=== PATIENT | male | born 1955 | race Two or more races ===

== ENCOUNTER → 2017-08-17 | Emergency (ER) | payer OTHER ==
[~2017-08-17] VITALS: Ht 175.3 cm; Wt 93.4 kg
[~2017-08-17] MED LIST: ACET325T9 PO; AMLO25PO MC; CIPR500T94 PO; GUAI120L35 PO; HYDR-971 PO; HYDR25TA9 PO; METO25TA2 PO; NAPR275T59 PO; OMEG1CAP30 PO; SAW1CAPS3 PO; TAMS0.4C2 PO; TAMS0.4C97 PO
[2017-08-17 08:18] VITALS: BP 148/89
--- NOTE | 2017-08-17 08:39 | PHYS DOC ---
Past History Past Medical History: Hypertension Additional Past Medical Histor: foot drop Past Surgical History: TURP, Other Additional Past Surgical Histo: PFO closure, back surgery, Smoking: Non-smoker Alcohol Use: None Drug Use: None Adult General Chief Complaint Chief Complaint: [facility] HPI Patient is a pleasant 62-year-old otherwise healthy male with a history of PFO closure surgically, hypertension, prior foot drop secondary to back surgery with complains of one-week history of a nonproductive cough. Patient has had runny nose cough congestion for last week with episodes of increasing congestion and increasing sore throat with coughing. He complains of no chest pain, no shortness of breath, no travel outside the country, no fevers, chills, changes in voice, or anterior neck swelling or fullness. He has had sick contacts both at work and at home. He denies any antibiotic use or night sweats or fevers. The cough is gotten better and the sore throat is improved with congestion and nasal drainage has increased. Patient is use [id number] guaifenesin to help with symptoms to some relief. His is concerning might have walking pneumonia. He admits to no fatigue, night sweats or weight loss. He does use a sleep apnea machine at home actually helps out with some of his symptoms. He does not handle poultry, birds or other livestock Review of Systems Review of Systems Constitutional: Denies fever or chills [] Eyes: Denies change in visual acuity, redness, or eye pain [] HENT: He does describe some nasal congestion and sore throat with cough. Respiratory: He does describe cough nonproductive without shortness of breath.[] Cardiovascular: No additional information not addressed in HPI [] GI: Denies abdominal pain, nausea, vomiting, bloody stools or diarrhea [] : Denies dysuria or hematuria [] Musculoskeletal: Denies back pain or joint pain [] Integument: Denies rash or skin lesions [] Neurologic: Denies headache, focal weakness or sensory changes [] Allergies Allergies Allergies Coded Allergies Type Severity Reaction Last Updated Verified lisinopril Allergy Intermediate MILD COUGHING FITS 04/16/14 Yes Physical Exam Physical Exam The patient's vital signs recorded on the chart patient is a hypertension and low-grade fever 99.4. Constitutional: Well developed, well nourished, no acute distress, non-toxic appearance. [] HENT: Normocephalic, atraumatic, bilateral external ears normal, oropharynx moist, no oral exudates, patient has mild erythema, no tonsillar hypertrophy, patient's nasal turbinates are boggy without facial swelling, tenderness palpation or fullness.[] Eyes: PERRLA, EOMI, conjunctiva normal, no discharge. [] Neck: Normal range of motion, no tenderness, supple, no stridor. [] Cardiovascular:Heart rate regular rhythm, no murmur [] Lungs & Thorax: Bilateral breath sounds clear to auscultation [] Skin: Warm, dry, no erythema, no rash. [] Neurologic: Alert and oriented X 3, cranial nerves are intact normal speech, gait [] Psychologic: Affect normal, judgement normal, mood normal. [] Current Patient Data Vital Signs Vital Signs Date Time Temp Pulse Resp B/P (MAP) Pulse Ox O2 Delivery O2 Flow Rate FiO2 08/17/17 08:18 99.4 70 18 97 Room Air EKG EKG [] Radiology/Procedures Radiology/Procedures Two-view chest x-ray read by me done at 8:32 AM demonstrates no cardiomegaly, no pleural effusion, no specific infiltrate hyperinflation or other signs of pulmonary disease.[] Course & Med Decision Making Course & Med Decision Making Pertinent Labs and Imaging studies reviewed. (See chart for details) Patient presents with a nonproductive cough without shortness of breath or chest pain for the last week. He has URI-like symptoms and is mainly concerning his had walking pneumonia. I will complete a chest x-ray along with his physical examination to determine if is any other source of infection. It is likely viral nature. Patient's chest x-ray read at 832 this morning demonstrates no acute infiltrate consistent with an pneumonia or pleural effusion. Patient will be given supportive cares for his likely upper respiratory tract infection. Patient does not look septic or require empiric antibiotic therapy. [] Dragon Disclaimer Dragon Disclaimer This chart was dictated in whole or in part using Voice Recognition software in a busy, high-work load, and often noisy Emergency Department environment. It may contain unintended and wholly unrecognized errors or omissions. Departure Departure: Impression: Primary Impression: Upper respiratory tract infection Disposition: HOME, SELF-CARE Condition: STABLE Referrals: JULIAN LINK (PCP) Patient Instructions: Upper Respiratory Infection, Adult Additional Instructions: My discharge plan Follow up: In addition patient is asked to followup with their primary doctor, within a week for followup examination and to address patient's ongoing medical conditions. Patient is advised that in the Emergency Department primary complaints are addressed and only in light of known signs and symptoms. Patient should return immediately to the emergency department if new signs and symptoms develop or patient's condition worsens in any way. At time of discharge patient was in stable condition and had verbalized understanding of the discharge instructions. Scripts Naproxen Sodium (NAPROXEN SODIUM) 275 Mg Tablet 275 MG PO BID for 7 Days, #14 TAB Prov: LADY LUCIANO MD 08/17/17 Acetaminophen (TYLENOL) 325 Mg Tablet 1-2 TAB PO QID, #30 TAB 2 Refills Prov: LADY LUCIANO MD 08/17/17 Guaifenesin/Codeine Phosphate (Codeine-Guaifen 10-100 mg/5 ml) 120 Ml Liquid 120 ML PO QID for 5 Days, #30 LIQUID Prov: LADY LUCIANO MD 08/17/17 LADY LUCIANO MD Aug 17, 2017 08:39
--- NOTE | 2017-08-17 08:45 | RAD ---
PA and lateral chest. History: Cough PA and lateral views were taken of the chest. Lungs are clear. Heart is normal in size without heart failure. There is no pleural effusion. There is an old AC separation on the right. The aorta is tortuous. Impression: 1. No acute chest disease.
== END ==
LOC: ER 07:57
DX: J06.9 Acute upper respiratory infection, unspecified (principal); I10 Essential (primary) hypertension; Z88.8 Allergy status to other drugs, medicaments and biological substances
CPT/HCPCS: 71020; 99284